=== PATIENT | female | born 2000 | race Two or more races ===

== ENCOUNTER 2021-08-27 19:37 | Emergency (ER) | payer OTHER ==
[~2021-08-27] VITALS: Ht 160 cm; Wt 58.1 kg
[2021-08-27 19:37] VITALS: BP 124/80
[2021-08-27] MEDS ORDERED: diphenhdrAMINE HCL 50 MG/1 ML VL ONE (19:45)
[2021-08-27] MEDS ORDERED: methylPREDNISolone SOD SUCC 125 MG/2 ML VL ONE (19:45)
[2021-08-27] MEDS ORDERED: diphenhdrAMINE HCL 50 MG/1 ML VL IM ONE (20:00)
[2021-08-27] MEDS ORDERED: FAMOTIDINE 20 MG TAB PO ONE (20:00)
[2021-08-27] MEDS ORDERED: methylPREDNISolone SOD SUCC 125 MG/2 ML VL IM ONE (20:00)
== END 2021-08-27 21:33 | disposition home or self-care (01) ==
LOC: ER 19:37
DX: R22.0 Localized swelling, mass and lump, head (principal); T50.905A Adverse effect of unspecified drugs, medicaments and biological substances, initial encounter; Y92.89 Other specified places as the place of occurrence of the external cause
CPT/HCPCS: 96372; 99284; J1200; J2930